=== PATIENT | female | born 1970 ===

== ENCOUNTER 2019-04-19 20:27 | Emergency (ER) | payer SELFPAY ==
[2019-04-19] MEDS ORDERED: METOCLOPRAMIDE 10 MG/2mL INJ ONE (22:40)
[2019-04-19] MEDS ORDERED: ONDANSETRON 4 MG/2 ML VIAL ONE (22:41)
[2019-04-19] MEDS ORDERED: NA CHLORIDE 0.9% 1,000 ML ONE (22:41)
[2019-04-19 23:01] LABS: Urine Blood TRACE (NEG); Urine Glucose NEGATIVE (NEG); Urine Protein 2+ (NEG)
[2019-04-19 23:04] LABS: Barbiturates NEGATIVE (NEGATIVE); Benzodiazepines NEGATIVE (NEGATIVE); Cocaine NEGATIVE (NEGATIVE); METHAMPHETAM POSITIVE (NEGATIVE); Methadone NEGATIVE (NEGATIVE); Opiates NEGATIVE (NEGATIVE); Phencyclidine NEGATIVE (NEGATIVE); THC Cannibis NEGATIVE (NEGATIVE)
[2019-04-19 23:44] LABS: Absolute Lymphocytes (CBC) 2.7 K/uL (0.7-4.9); Hematocrit 43.1 % (36.0-45.0); Lymphocytes % 39.6 % (15.3-44.8); MPV 9.1 fL (7.6-11.3); RBC Red Blood Cell Count 4.97 M/uL (3.86-4.86)
[2019-04-19 23:53] LABS: Protime INR 0.96
[2019-04-19 23:57] LABS: ALT/SGPT 17 U/L (12-78); AST/SGOT 14 U/L (15-37); Albumin 3.9 g/dL (3.4-5.0); Alkaline Phosphatase 77 U/L (45-117); BUN Blood Urea Nitrogen 14 mg/dL (7-18); Bicarbonate 26 mmol/L (21-32); Bilirubin Direct 0.1 mg/dL (0-0.2); Bilirubin Total 0.3 mg/dL (0.2-1.0); Glucose Level 94 mg/dL (74-106); NT PRO-BNP 111 pg/mL (<125); Potassium 3.8 mmol/L (3.5-5.1); Protein, Total 6.9 g/dL (6.4-8.2); Sodium Level 140 mmol/L (136-145); Troponin (Emerg Dept Use Only) < 0.02 ng/mL (0.0-0.045)
--- NOTE | 2019-04-20 00:25 | ER ---
Nurse's Notes [facility] Name: Dottie Zhong Age: 48 yrs Sex: Female : 1970 Arrival Date: 04/19/2019 Time: 20:31 Bed 6 Private MD: Diagnosis: Headache;Elevated blood-pressure reading, without diagnosis of hypertension;Adverse effect of amphetamines Presentation: 04/19 20:33 Presenting complaint: Patient states: "They checked my blood pressure earlier when I aj1 checked into treatment and it was 157/109. I normally take blood pressure medicine, the ladies in the office wanted it to be rechecked and the last one was 192 on the top. Patient reports headache and that her hands "feel cold". Transition of care: patient was not received from another setting of care. Onset of symptoms was April 19, 2019. Risk Assessment: Do you want to hurt yourself or someone else? Patient reports no desire to harm self or others. Initial Sepsis Screen: Does the patient meet any 2 criteria? No. Patient's initial sepsis screen is negative. Does the patient have a suspected source of infection? No. Patient's initial sepsis screen is negative. Care prior to arrival: None. 20:33 Method Of Arrival: Ambulatory aj1 20:37 Acuity: MIHIR 3 aj1 Triage Assessment: 20:35 General: Appears in no apparent distress. comfortable, Behavior is calm, cooperative, aj1 appropriate for age. Pain: Pain currently is 7 out of 10 on a pain scale. Neuro: Level of Consciousness is awake, alert, obeys commands. Cardiovascular: Patient's skin is warm and dry. Respiratory: Airway is patent Respiratory effort is even, unlabored, Respiratory pattern is regular, symmetrical. 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 - Social history:: Smoking status: Patient uses tobacco products, smokes one-half pack cigarettes per day. - Ebola Screening: : Patient denies travel to an Ebola-affected area in the 21 days before illness onset. Screenin:55 Abuse screen: Denies threats or abuse. Denies injuries from another. Nutritional ak1 screening: No deficits noted. Tuberculosis screening: No symptoms or risk factors identified. Fall Risk None identified. Assessment: 23:24 Reassessment: Patient appears in no apparent distress at this time. General: Appears in ak1 no apparent distress. Behavior is calm, cooperative. Pain: Complains of pain in headache. Neuro: No deficits noted. Neuro: Level of Consciousness is awake, alert, obeys commands, Oriented to person, place, time, situation, Appropriate for age Moves all extremities. Full function Gait is steady, Speech is normal, Facial symmetry appears normal. Cardiovascular: No deficits noted. Respiratory: No deficits noted. GI: No signs and/or symptoms were reported involving the gastrointestinal system. : No signs and/or symptoms were reported regarding the genitourinary system. EENT: No signs and/or symptoms were reported regarding the EENT system. Derm: No signs and/or symptoms reported regarding the dermatologic system. Musculoskeletal: No signs and/or symptoms reported regarding the musculoskeletal system. 04/20 00:16 Reassessment: Patient appears in no apparent distress at this time. Patient and/or ak1 family updated on plan of care and expected duration. Pain level reassessed. Patient is alert, oriented x 3, equal unlabored respirations, skin warm/dry/pink. Patient states symptoms have improved. Vital Signs: 04/19 20:35 Pulse 78; Resp 18; Temp 98.6; Pulse Ox 100% on R/A; Weight 58.51 kg (R); Height 5 ft. 2 aj1 in. (157.48 cm) (R); Pain 7/10; 20:35 BP 186 / 94; aj1 22:30 BP 178 / 101; Pulse 66; Resp 14; Temp 98.6; Pulse Ox 99% on R/A; ak1 23:34 BP 159 / 97; Pulse 61; Resp 14; Pulse Ox 100% on R/A; ak1 04/20 00:15 BP 149 / 89; Pulse 63; Resp 14; Pulse Ox 100% on R/A; ak1 00:39 BP 138 / 83; Pulse 70; Resp 16; Temp 98.6; Pulse Ox 100% on R/A; ak1 04/19 20:35 Body Mass Index 23.59 (58.51 kg, 157.48 cm) aj1 ED Course: 04/19 20:31 Patient arrived in ED. ag3 20:37 Triage completed. aj1 21:55 Leigh Valenzuela, RN is Primary Nurse. ak1 21:55 Arm band placed on Patient placed in an exam room, on a stretcher, Patient notified of ak1 wait time. 21:55 Patient has correct armband on for positive identification. Call light in reach. Side ak1 rails up X 1. 22:10 Austyn Gamino PA is PHCP. cp 22:10 Luis Alberto Johnson MD is Attending Physician. cp 22:43 XRAY Chest (1 view) In Process Unspecified. EDMS 22:55 CT Head Brain wo Cont In Process Unspecified. EDMS 23:25 No provider procedures requiring assistance completed. Missed attempt(s): 22 gauge in ak1 right antecubital area. Charge nurse notified and will attempt IV access. . 23:27 Initial lab(s) drawn, by me, sent to lab. Inserted saline lock: 22 gauge in right fc forearm, using aseptic technique. Blood collected. 04/20 00:47 IV discontinued, intact, bleeding controlled, No redness/swelling at site. Pressure ak1 dressing applied. Administered Medications: 04/19 23:44 Drug: NS 0.9% 1000 ml Route: IV; Rate: 1 bolus; Site: right forearm; ak1 04/20 00:40 Follow up: IV Status: Completed infusion; IV Intake: 1000ml ak1 04/19 23:44 Drug: Reglan 10 mg Route: IVP; Site: right forearm; ak1 23:45 Follow up: Response: No adverse reaction ak1 23:44 Drug: Zofran 4 mg Route: IVP; Site: right forearm; ak1 23:45 Follow up: Response: No adverse reaction ak1 Intake: 04/20 00:40 IV: 1000ml; Total: 1000ml. ak1 Outcome: 00:23 Discharge ordered by . cp 00:40 Condition: good ak1 00:47 Discharged to home ambulatory, with family. ak1 00:47 Discharge instructions given to patient, family, Instructed on discharge instructions, follow up and referral plans. Demonstrated understanding of instructions, follow-up care. 01:10 Patient left the ED. ak1 Signatures: Dispatcher [employer] EDCorrie Randall RN RN aj1 Neema Ruiz, RN RN fc Leigh Valenzuela RN RN ak1 Austyn Gamino PA PA cp Gomez, Alice 3
--- NOTE | 2019-04-20 00:25 | EDPHYS ---
Physician Documentation [facility] Name: Dottie Zhong Age: 48 yrs Sex: Female : 1970 Arrival Date: 04/19/2019 Time: 20:31 Bed 6 Private MD: ED Physician Luis Alberto Johnson HPI: 04/19 22:30 This 48 yrs old Female presents to ER via Ambulatory with complaints of High Blood cp Pressure. 22:30 The patient has elevated blood pressure and discovered this while at drug treatment cp center. 22:30 Onset: The symptoms/episode began/occurred today. Associated signs and symptoms: cp Pertinent positives: headache, Pertinent negatives: chest pain, dyspnea, vomiting, weakness. 22:30 Severity of symptoms: At its worst the blood pressure was 192 mm Hg. cp 22:30 Patient reports she last used methamphetamine yesterday and denies history of cp hypertension. 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 - Social history:: Smoking status: Patient uses tobacco products, smokes one-half pack cigarettes per day. - Ebola Screening: : Patient denies travel to an Ebola-affected area in the 21 days before illness onset. ROS: 22:35 Constitutional: Negative for body aches, chills, fever, poor PO intake. cp 22:35 Eyes: Negative for injury, pain, redness, and discharge. cp 22:35 Cardiovascular: Negative for chest pain, edema, palpitations. cp 22:35 ENT: Negative for drainage from ear(s), ear pain, sore throat, difficulty swallowing, cp difficulty handling secretions. 22:35 Neck: Negative for pain with movement, pain at rest, stiffness, tenderness. 22:35 Respiratory: Negative for cough, shortness of breath, wheezing. 22:35 Abdomen/GI: Negative for abdominal pain, vomiting, diarrhea, constipation. 22:35 Back: Negative for pain at rest, pain with movement. 22:35 Skin: Negative for cellulitis, rash. 22:35 Neuro: Positive for headache, Negative for altered mental status, dizziness, seizure activity, speech changes, syncope, weakness. 22:35 All other systems are negative. Exam: 22:40 Constitutional: The patient appears in no acute distress, alert, awake, cp non-diaphoretic, non-toxic, well developed, well nourished. 22:40 Head/Face: Normocephalic, atraumatic. cp 22:40 Eyes: Periorbital structures: appear normal, Pupils: equal, round, and reactive to light and accomodation, Extraocular movements: intact throughout, Conjunctiva: normal, no exudate, no injection, Sclera: no appreciated abnormality, Lids and lashes: appear normal, bilaterally. 22:40 ENT: External ear(s): are unremarkable, Ear canal(s): are normal, clear, TM's: bulging, is not appreciated, bilaterally, dullness, bilaterally, erythema, is not appreciated, bilaterally, Nose: is normal, Mouth: Lips: moist, Oral mucosa: pink and intact, moist, Posterior pharynx: is normal, airway is patent, no erythema, no exudate, Voice: is normal. 22:40 Neck: ROM/movement: is normal, is supple, without pain, no range of motions limitations, no meningismus, no nuchal rigidity. 22:40 Chest/axilla: Inspection: normal, Palpation: is normal, no crepitus, no tenderness. 22:40 Cardiovascular: Rate: normal, Rhythm: regular, Pulses: Pulses are 2+ in right radial artery and left radial artery. Edema: is not appreciated, JVD: is not appreciated. 22:40 Respiratory: the patient does not display signs of respiratory distress, Respirations: normal, no use of accessory muscles, no retractions, labored breathing, is not present, Breath sounds: are clear throughout, no decreased breath sounds, no stridor, no wheezing. 23:25 ECG was reviewed by the Attending Physician. cp Vital Signs: 20:35 Pulse 78; Resp 18; Temp 98.6; Pulse Ox 100% on R/A; Weight 58.51 kg (R); Height 5 ft. 2 aj1 in. (157.48 cm) (R); Pain 7/10; 20:35 BP 186 / 94; aj1 22:30 BP 178 / 101; Pulse 66; Resp 14; Temp 98.6; Pulse Ox 99% on R/A; ak1 23:34 BP 159 / 97; Pulse 61; Resp 14; Pulse Ox 100% on R/A; ak1 04/20 00:15 BP 149 / 89; Pulse 63; Resp 14; Pulse Ox 100% on R/A; ak1 00:39 BP 138 / 83; Pulse 70; Resp 16; Temp 98.6; Pulse Ox 100% on R/A; ak1 04/19 20:35 Body Mass Index 23.59 (58.51 kg, 157.48 cm) aj1 MDM: 04/19 22:15 Patient medically screened. cp 04/20 00:00 Differential diagnosis: hypertensive crisis, Malignant HTN, CVA, intracerebral cp hemorrhage. 00:22 Data reviewed: vital signs, nurses notes, lab test result(s), EKG, radiologic studies, cp CT scan, plain films, and as a result, I will discharge patient. 00:22 Test interpretation: by ED physician or midlevel provider: ECG. 00:22 Counseling: I had a detailed discussion with the patient and/or guardian regarding: the cp historical points, exam findings, and any diagnostic results supporting the discharge/admit diagnosis, the presence of at least one elevated blood pressure reading (>120/80) during this emergency department visit, lab results, radiology results, the need for outpatient follow up, a family practitioner, to return to the emergency department if symptoms worsen or persist or if there are any questions or concerns that arise at home. 00:22 Response to treatment: the patient's symptoms have markedly improved after treatment, cp and as a result, I will discharge patient. ED course: VSS. Headache improved with meds. Blood pressure improved and stable. Will discharge to home for continued monitoring. 04/19 22:20 Order name: Basic Metabolic Panel; Complete Time: 00:14 cp 04/19 22:20 Order name: CBC with Diff; Complete Time: 23:56 cp 04/19 23:56 Interpretation: Normal except: RBC 4.97; EOSINOPHIL % 8.3; EOSA 0.6. cp 04/19 22:20 Order name: LFT's; Complete Time: 00:14 cp 04/20 00:15 Interpretation: Reviewed. 04/19 22:20 Order name: Magnesium; Complete Time: 00:14 cp 04/19 22:20 Order name: NT PRO-BNP; Complete Time: 00:14 cp 04/19 22:20 Order name: PT-INR; Complete Time: 23:56 cp 04/19 22:20 Order name: Troponin (emerg Dept Use Only); Complete Time: 00:14 cp 04/20 00:15 Interpretation: Within normal limits: TROPED < 0.02. cp 04/19 22:20 Order name: XRAY Chest (1 view) cp 04/19 22:20 Order name: UDS; Complete Time: 23:56 cp 04/19 23:56 Interpretation: Normal except: METHAMPHETAMINE POSITIVE. cp 04/19 22:20 Order name: CT Head Brain wo Cont cp 04/19 22:52 Order name: Urine Dipstick--Ancillary (enter results); Complete Time: 23:56 ar5 04/20 00:15 Interpretation: Normal except: UBLD TRACE; UPROT 2+. cp 04/19 22:52 Order name: Urine --Ancillary (enter results); Complete Time: 23:56 [facility] 04/19 22:20 Order name: EKG; Complete Time: 22:21 cp 04/19 22:20 Order name: Cardiac monitoring; Complete Time: 22:32 cp 04/19 22:20 Order name: EKG - Nurse/Tech; Complete Time: 23:26 cp 04/19 22:20 Order name: IV Saline Lock; Complete Time: 23:45 cp 04/19 22:20 Order name: Labs collected and sent; Complete Time: 23:45 cp 04/19 22:20 Order name: O2 Per Protocol; Complete Time: 22:25 cp 04/19 22:20 Order name: O2 Sat Monitoring; Complete Time: 22:25 cp 04/19 22:21 Order name: Urine Dipstick-Ancillary (obtain specimen); Complete Time: 22:42 cp 04/19 22:21 Order name: Urine Test (obtain specimen); Complete Time: 22:42 cp EC/24 23:25 Rate is 59 beats/min. Rhythm is regular. CO interval is normal. QRS interval is normal. cp QT interval is normal. T waves are Inverted in lead aVL. Interpreted by me. Reviewed by me. Administered Medications: 23:44 Drug: NS 0.9% 1000 ml Route: IV; Rate: 1 bolus; Site: right forearm; ak1 04/20 00:40 Follow up: IV Status: Completed infusion; IV Intake: 1000ml ak1 04/19 23:44 Drug: Reglan 10 mg Route: IVP; Site: right forearm; ak1 23:45 Follow up: Response: No adverse reaction ak1 23:44 Drug: Zofran 4 mg Route: IVP; Site: right forearm; ak1 23:45 Follow up: Response: No adverse reaction ak1 Disposition: 04/20/19 00:23 Discharged to Home. Impression: Headache, Elevated blood-pressure reading, without diagnosis of hypertension, Adverse effect of amphetamines. - Condition is Stable. - Discharge Instructions: General Headache Without Cause, Stimulant Use Disorder-Methamphetamines, How to Take Your Blood Pressure, [id number], Form - Blood Pressure Record Sheet. - Medication Reconciliation Form, Thank You Letter, Antibiotic Education, Prescription Opioid Use form. - Follow up: Private Physician; When: 1 - 2 days; Reason: Recheck today's complaints. - Problem is new. - Symptoms have improved. Signatures: Dispatcher [employer] [facility] Corrie Marin RN RN aj1 Leigh Valenzuela RN RN ak1 Austyn Gamino PA PA cp Corrections: (The following items were deleted from the chart) 23:56 23:56 Normal except: RBC 4.97; EOSINOPHIL % 8.3. cp cp 04/20 00:25 00:23 04/20/2019 00:23 Discharged to Home. Impression: Headache; Elevated cp blood-pressure reading, without diagnosis of hypertension. Condition is Stable. Forms are Medication Reconciliation Form, Thank You Letter, Antibiotic Education, Prescription Opioid Use. Follow up: Private Physician; When: 1 - 2 days; Reason: Recheck today's complaints. Problem is new. Symptoms have improved. cp 01:10 00:25 04/20/2019 00:23 Discharged to Home. Impression: Headache; Elevated ak1 blood-pressure reading, without diagnosis of hypertension; Adverse effect of amphetamines. Condition is Stable. Discharge Instructions: General Headache Without Cause, How to Take Your Blood Pressure, [id number], Form - Blood Pressure Record Sheet. Forms are Medication Reconciliation Form, Thank You Letter, Antibiotic Education, Prescription Opioid Use. Follow up: Private Physician; When: 1 - 2 days; Reason: Recheck today's complaints. Problem is new. Symptoms have improved. cp
[2019-04-20 02:26] VITALS: TEMP 98.6
[2019-04-20 02:29] VITALS: O2SAT 100
[2019-04-20 02:33] VITALS: BP 138/83
--- NOTE | 2019-04-20 07:22 | EKG ---
Test Date: 2019-04-19 Test Time: 23:20:58 Welder Tack: KIMBERLEY MEASUREMENT RESULTS: Intervals: Rate: 59 RI: 180 QRSD: 88 QT: 434 QTc: 429 [place]: P: 67 RI: 180 QRS: 84 T: 71 INTERPRETIVE STATEMENTS: Sinus bradycardia Otherwise normal ECG No previous ECG available for comparison Electronically Signed On 04-20-19 07:21:44 CDT by Kade Hatfield
--- NOTE | 2019-04-20 08:18 | RAD REPORT ---
EXAM DESCRIPTION: RAD - Chest Single View - 04/19/2019 10:43 pm CLINICAL HISTORY: elevated blood pressure Chest pain. COMPARISON: No comparisons FINDINGS: Portable technique limits examination quality. The lungs are grossly clear. The heart is normal in size. No displaced fractures. IMPRESSION: No acute intrathoracic process suspected.
--- NOTE | 2019-04-23 14:13 | RAD REPORT ---
EXAM DESCRIPTION: Head Brain Wo Cont CLINICAL HISTORY: Headache. COMPARISON: None. TECHNIQUE: CT scan of the brain without IV contrast. This exam was performed according to our depa rtmental dose-optimization program, which includes automated exposure control, adjustment of the mA a nd/or kV according to patient size and/or use of iterative reconstruction technique. FINDINGS: The ventricles, cisterns, and sulci are age-appropriate. No evidence of acute infarction, intracranial hemorrhage, extra-axial fluid collection, or midline shift. No air-fluid levels are seen in the paranasal sinuses to suggest acute sinusitis. No depressed skull fracture. IMPRESSION: No acute intracranial findings. Electronically signed by: Aldo Wilson MD 04/19/2019 11:05 PM CDT Due to temporary technical issues with the PACS/Fluency reporting system, reports are being signed by the in house radiologist as a courtesy to ensure prompt reporting. The interpreting radiologist is f ully responsible for the content of the report.
== END 2019-04-20 01:10 | disposition home or self-care (01) ==
LOC: ER 20:27
DX: R03.0 Elevated blood-pressure reading, without diagnosis of hypertension (principal); T43.625A Adverse effect of amphetamines, initial encounter; F17.210 Nicotine dependence, cigarettes, uncomplicated
CPT/HCPCS: 36415; 70450; 71045; 80048; 80076; 80307; 81003; 81025; 83735; 83880; 84484; 85025; 85610; 93005; 96361; 96374; 96375; 99284; J2405; J2765; J7030

== ENCOUNTER 2019-04-20 13:02 | Emergency (ER) | payer SELFPAY ==
[2019-04-20] MEDS ORDERED: ACETAMINOPHEN 500 MG TAB ONE (13:31)
--- NOTE | 2019-04-20 14:02 | EDPHYS ---
Physician Documentation [facility] Name: Dottie Zhong Age: 48 yrs Sex: Female : 1970 Arrival Date: 04/20/2019 Time: 13:03 Bed 15 Private MD: ED Physician Grabiel Edwards HPI: 04/20 14:27 This 48 yrs old Female presents to ER via EMS with complaints of Headache. kb 14:27 The patient has elevated blood pressure and discovered this [address] [place]. Onset: The kb symptoms/episode began/occurred yesterday. Associated signs and symptoms: Pertinent positives: headache. Severity of symptoms: At its worst the blood pressure was mild, moderate. The patient has not experienced similar symptoms in the past. The patient has been recently seen at the [facility], yesterday, for similar complaints labs were performed, X-rays were performed. Pt reports her BP was 190/100 last night so she was sent to the ER. States they did labs, CT head and chest x-ray and sent her back. Today her bp was a little elevated and her pulse was lower so she was sent back. States she has a headache only. . 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 - Social history:: Smoking status: Patient uses tobacco products. - Ebola Screening: : Patient negative for fever greater than or equal to 101.5 degrees Fahrenheit, and additional compatible Ebola Virus Disease symptoms Patient denies exposure to infectious person Patient denies travel to an Ebola-affected area in the 21 days before illness onset No symptoms or risks identified at this time. ROS: 14:27 Constitutional: Negative for fever, chills, and weight loss, ENT: Negative for injury, kb pain, and discharge, Neck: Negative for injury, pain, and swelling, Cardiovascular: Negative for chest pain, palpitations, and edema, Respiratory: Negative for shortness of breath, cough, wheezing, and pleuritic chest pain, Abdomen/GI: Negative for abdominal pain, nausea, vomiting, diarrhea, and constipation, Back: Negative for injury and pain, MS/Extremity: Negative for injury and deformity, Skin: Negative for injury, rash, and discoloration. 14:27 Neuro: Positive for headache. Exam: 14:27 Constitutional: This is a well developed, well nourished patient who is awake, alert, kb and in no acute distress. Head/Face: Normocephalic, atraumatic. Eyes: Pupils equal round and reactive to light, extra-ocular motions intact. Lids and lashes normal. Conjunctiva and sclera are non-icteric and not injected. Cornea within normal limits. Periorbital areas with no swelling, redness, or edema. ENT: Nares patent. No nasal discharge, no septal abnormalities noted. Tympanic membranes are normal and external auditory canals are clear. Oropharynx with no redness, swelling, or masses, exudates, or evidence of obstruction, uvula midline. Mucous membranes moist. Neck: Trachea midline, no thyromegaly or masses palpated, and no cervical lymphadenopathy. Supple, full range of motion without nuchal rigidity, or vertebral point tenderness. No Meningismus. Chest/axilla: Normal chest wall appearance and motion. Nontender with no deformity. No lesions are appreciated. Cardiovascular: Regular rate and rhythm with a normal S1 and S2. No gallops, murmurs, or rubs. Normal PMI, no JVD. No pulse deficits. Respiratory: Lungs have equal breath sounds bilaterally, clear to auscultation and percussion. No rales, rhonchi or wheezes noted. No increased work of breathing, no retractions or nasal flaring. Abdomen/GI: Soft, non-tender, with normal bowel sounds. No distension or tympany. No guarding or rebound. No evidence of tenderness throughout. Skin: Warm, dry with normal turgor. Normal color with no rashes, no lesions, and no evidence of cellulitis. MS/ Extremity: Pulses equal, no cyanosis. Neurovascular intact. Full, normal range of motion. Neuro: Awake and alert, GCS 15, oriented to person, place, time, and situation. Cranial nerves II-XII grossly intact. Motor strength 5/5 in all extremities. Sensory grossly intact. Cerebellar exam normal. Normal gait. Vital Signs: 13:20 BP 129 / 89; Pulse 62; Resp 14; Pulse Ox 99% on R/A; Weight 65.77 kg; Height 5 ft. 6 ch in. (167.64 cm); Pain 7/10; 13:29 Temp 98.1(TE); iw 13:39 BP 126 / 76; Pulse 59; Resp 14; Temp 98.2; Pulse Ox 99% on R/A; Pain 6/10; ch 13:20 Body Mass Index 23.40 (65.77 kg, 167.64 cm) MDM: 13:04 Patient medically screened. 14:01 Data reviewed: vital signs, nurses notes. Data interpreted: Pulse oximetry: on room air kb is 99 %. Interpretation: normal. Counseling: I had a detailed discussion with the patient and/or guardian regarding: the historical points, exam findings, and any diagnostic results supporting the discharge/admit diagnosis, the need for outpatient follow up, a family practitioner, to return to the emergency department if symptoms worsen or persist or if there are any questions or concerns that arise at home. 14:01 Data reviewed: old medical records, cardiac workup completed last night and wnl. 04/20 13:23 Order name: EKG; Complete Time: 13:23 04/20 13:23 Order name: EKG - Nurse/Tech; Complete Time: 13:31 Administered Medications: 13:36 Drug: Tylenol 1000 mg Route: PO; 14:15 Follow up: Response: No adverse reaction Disposition: 15:09 Co-signature as Attending Physician, Grabiel Edwards MD I agree with the assessment and kdr plan of care. Disposition: 04/20/19 14:02 Discharged to Home. Impression: Headache. - Condition is Stable. - Discharge Instructions: Hypertension, [id number], General Headache Without Cause, [id number]. - Medication Reconciliation Form, Thank You Letter, Antibiotic Education, Prescription Opioid Use form. - Follow up: Emergency Department; When: As needed; Reason: Worsening of condition. Follow up: Private Physician; When: 2 - 3 days; Reason: Recheck today's complaints, Continuance of care, Re-evaluation by your physician. Signatures: Estela Redman, PATRICIA-C PATRICIA-Paola Negron RN RN ch Rittger, Kevin, MD MD kdr Corrections: (The following items were deleted from the chart) 14:15 14:02 04/20/2019 14:02 Discharged to Home. Impression: Headache. Condition is Stable. ch Forms are Medication Reconciliation Form, Thank You Letter, Antibiotic Education, Prescription Opioid Use. Follow up: Emergency Department; When: As needed; Reason: Worsening of condition. Follow up: Private Physician; When: 2 - 3 days; Reason: Recheck today's complaints, Continuance of care, Re-evaluation by your physician. kb
--- NOTE | 2019-04-20 14:02 | ER ---
Nurse's Notes [facility] Name: Dottie Zhong Age: 48 yrs Sex: Female : 1970 Arrival Date: 04/20/2019 Time: 13:03 Bed 15 Private MD: Diagnosis: Headache Presentation: 04/20 13:04 Presenting complaint: Patient states: I have been off meth for one day. headache, ch feeling heart race, my blood pressure is going up and my heart rate is going down. I was seen here yesterday. Transition of care: patient was not received from another setting of care. Onset of symptoms was April 19, 2019. Risk Assessment: Do you want to hurt yourself or someone else? Patient reports no desire to harm self or others. Initial Sepsis Screen: Does the patient meet any 2 criteria? No. Patient's initial sepsis screen is negative. Does the patient have a suspected source of infection? No. Patient's initial sepsis screen is negative. Care prior to arrival: None. 13:04 Method Of Arrival: EMS: [facility] 13:04 Acuity: MIHIR 3 ch Triage Assessment: 13:06 Headache History: Denies prior headaches. 14:14 General: Appears in no apparent distress. comfortable, Behavior is calm, cooperative, ch appropriate for age. Pain: Complains of pain in head Pain currently is 6 out of 10 on a pain scale. Also complains of no other associated symptoms. Neuro: No deficits noted. Respiratory: No deficits noted. Derm: Skin is pink, warm \T\ dry. 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 - Social history:: Smoking status: Patient uses tobacco products. - Ebola Screening: : Patient negative for fever greater than or equal to 101.5 degrees Fahrenheit, and additional compatible Ebola Virus Disease symptoms Patient denies exposure to infectious person Patient denies travel to an Ebola-affected area in the 21 days before illness onset No symptoms or risks identified at this time. Screenin:20 Abuse screen: Denies threats or abuse. Denies injuries from another. Nutritional screening: No deficits noted. Tuberculosis screening: No symptoms or risk factors identified. Fall Risk None identified. Assessment: 13:20 Reassessment: Patient appears in no apparent distress at this time. Patient and/or ch family updated on plan of care and expected duration. Pain level reassessed. Patient is alert, oriented x 3, equal unlabored respirations, skin warm/dry/pink. Pain: Complains of pain in head Pain currently is 7 out of 10 on a pain scale. Pain began gradually. Neuro: No deficits noted. Level of Consciousness is awake, alert, obeys commands, Oriented to person, place, time, situation, Escort Blind are equal bilaterally Moves all extremities. Full function Gait is steady, Speech is normal, Facial symmetry appears normal, Facial symmetry: tongue is midline, Pupils are PERRLA. Respiratory: Airway is patent Respiratory effort is even, unlabored, Breath sounds are clear bilaterally. GI: No signs and/or symptoms were reported involving the gastrointestinal system. Derm: Skin is pink, warm \T\ dry. 13:39 Reassessment: Patient appears in no apparent distress at this time. Patient and/or ch family updated on plan of care and expected duration. Pain level reassessed. Patient is alert, oriented x 3, equal unlabored respirations, skin warm/dry/pink. pt reports her pain at a 6 Patient states feeling better. 14:13 Reassessment: Patient appears in no apparent distress at this time. No changes from previously documented assessment. Patient and/or family updated on plan of care and expected duration. Pain level reassessed. Patient is alert, oriented x 3, equal unlabored respirations, skin warm/dry/pink. Vital Signs: 13:20 BP 129 / 89; Pulse 62; Resp 14; Pulse Ox 99% on R/A; Weight 65.77 kg; Height 5 ft. 6 in. (167.64 cm); Pain 7/10; 13:29 Temp 98.1(TE); iw 13:39 BP 126 / 76; Pulse 59; Resp 14; Temp 98.2; Pulse Ox 99% on R/A; Pain 6/10; ch 13:20 Body Mass Index 23.40 (65.77 kg, 167.64 cm) ED Course: 13:03 Patient arrived in ED. 13:04 Estela Redman FNP-C is [facility]. kb 13:04 Grabiel Edwards MD is Attending Physician. kb 13:04 EKG done, by compressor service technician. reviewed by Grabiel Edwards MD. sm3 13:05 Triage completed. ch 13:06 Arm band placed on right wrist. ch 13:15 IV discontinued. ch 13:20 Paola Hendrix, RN is Primary Nurse. ch 13:20 No apparent distress. Resting quietly. ch 13:20 No provider procedures requiring assistance completed. ch 13:20 Patient has correct armband on for positive identification. Bed in low position. Call light in reach. Side rails up X 1. Pulse ox on. NIBP on. Warm blanket given. Administered Medications: 13:36 Drug: Tylenol 1000 mg Route: PO; ch 14:15 Follow up: Response: No adverse reaction ch Outcome: 14:02 Discharge ordered by MD. kb 14:13 Discharged to Rehab Facility ch 14:13 Condition: stable 14:13 Discharge instructions given to patient, Instructed on discharge instructions, follow up and referral plans. Demonstrated understanding of instructions, follow-up care. 14:15 Patient left the ED. ch Signatures: Estela Redman FNP-C CARTOGRAPHY TEACHER-Ckb Paola Hendrix, RN RN Liana Frost RN RN Sondra Palacios 3
[2019-04-20 14:29] VITALS: O2SAT 99
[2019-04-20 14:31] VITALS: BP 126/76; TEMP 98.2
--- NOTE | 2019-04-21 12:32 | EKG ---
Test Date: 2019-04-20 Test Time: 13:01:[address] Tech: KEI MEASUREMENT RESULTS: Intervals: Rate: 64 CO: 138 QRSD: 90 QT: 414 QTc: 427 [place]: P: 60 CO: 138 QRS: 95 T: 59 INTERPRETIVE STATEMENTS: Normal sinus rhythm Rightward axis Borderline ECG Compared to ECG 04/19/2019 23:20:58 Right-axis deviation now present Sinus bradycardia no longer present Electronically Signed On 04-21-19 12:29:28 CDT by Kade Hatfield
== END 2019-04-20 14:15 | disposition home or self-care (01) ==
LOC: ER 13:02
DX: R51 Headache (principal); Z72.0 Tobacco use
CPT/HCPCS: 93005; 99284